=== PATIENT | male | born 2000 | race Caucasian/White ===

== ENCOUNTER 2025-01-16 03:35 | Emergency (ER) | payer OTHER, SELFPAY ==
--- OUTSIDE RECORDS SUMMARY | 2024-12-14 11:00 | XMS_ITS | Encounter Summary ---
[facility] Address [address] [place] [address] Care Team Providers Care Cp Bleacher Operator Name Role Phone Alda Law PA-C Primary Care Provider [phone]- [phone] Reason for Visit * Reason Onset Date Comments No Show 12/14/2024 Encounter Details Date Type Department Care Team (Latest Contact Info) Description 12/14/2024 11:00 AM CDT Telemedicine [facility] [address] [place], [place] [id number] Arline Hills MD [address] [facility] [place] [address] Encounters for administrative purposes (Primary Dx) Social History Tobacco Use Types Packs/Day Years Used Date Smoking Tobacco: Never Passive Smoke Exposure: Yes Smokeless Tobacco: Never Comments:Laquita trued cigarette s, i dont like or have interest in them. Alcohol Use Standard Drinks/Week Comments Yes 3 (1 standard drink = 0.6 oz pur e alcohol) social rarely PHQ-2 Answer Date Recorded PHQ-2 Score 6 11/13/2024 Financial Resource Strain Answer Date R ecorded Is it hard for you to pay fo r the very basics like food, housing, medical care or heating? Yes 11/19/2022 Food Insecurity Answer Date Recorded Does your food run out before you have the money to buy more? No 11/19/2022 Transportation Needs Answer Date Record ed Does a lack of transportatio n keep you from your medical appointments or from getting your medications? No 023 Sex and Gender Information Value Date Recorded Sex Assigned at Not on file Legal Sex Male 5:32 AM CDT Gender Identity Not on file Sexual Orientation Not on file documented as of this encounter Progress Notes * Arline Hills MD - 12/14/2024 11:00 AM CDT Patient was called/texted 2 times and was unable to be reached to complete their video/phone visit.Stayed on the visit for 15 minutes with no connection by patient. Arline Hills MD Family Medicine - [facility] documented in this encounter Plan of Treatment Not on file documented as of this encounter Visit Diagnoses Diagnosis Encounters for administrative purposes- Primary Encounters for unspecified administrative purpose documented in this encounter Care Teams Cp Bleacher Operator Relationship Specialty Start Date End Date Alda Law PA-C [address] [address] PCP - General Physician Boiler Tester 06/13/17 documented as of this encounter
[2025-01-16 03:42] VITALS: BP 127/86; PULSE 111; RESP 14; TEMP 37.4; O2SAT 96; BMI 37.0
--- NOTE | 2025-01-16 04:23 | ED.GENADULT ---
HPI - General Adult General Chief complaint: Headache/Migraine Stated complaint: Headache Time Seen by Provider: 01/16/25 04:00 Source: patient Mode of arrival: ambulatory Limitations: no limitations History of Present Illness HPI narrative: 24-year-old male presents to the emergency department with a postcoital headache that happened about 30 minutes prior to presentation. Headache happened at the climax of orgasm swelling gauging in sexual activity with his partner. No stimulants or other recreational drugs on board besides the marijuana that he typically smokes on a regular basis. No alcohol. He does not take any anticoagulants. The headache came on suddenly with orgasm and lasted 2-3 minutes, dissipating quickly. Had a low grade very dull ache for a few more minutes after and now the headache has resolved. He had a slight sensation of vertigo associated with the headache but that has passed as well. No prior history of similar symptoms. No prior history of brain aneurysm, no history of connective tissue disease. No hypertension. He felt like his heart was pounding with the episode and possibly a little bit irregular but that of course has also quickly resolved. No prior evaluation for similar complaints, no prior episodes. No recent head injury. Body feels back to normal at this point. No prior brain imaging. Past medical history benign per his report. History of depression and anxiety. Medications are reviewed. No allergies. Regularly smokes marijuana. ROS is notable for the neurological changes and headache patient describes, all quickly resolved in less than 5 minutes. Related Data Home Medications ?Medication ?Instructions ?Recorded ?Confirmed buspirone 15 mg tablet 15 mg PO DAILY 01/16/25 01/16/25 citalopram 20 mg tablet (Celexa) 20 mg PO DAILY 01/16/25 01/16/25 lamotrigine 150 mg tablet 150 mg PO DAILY 01/16/25 01/16/25 (Lamictal) Allergies Allergy/AdvReac Type Severity Reaction Status Date / Time No Known Drug Allergies Allergy Verified 01/16/25 03:42 Exam Const: Vital Signs, click to edit/add: Vital Signs - 24 hr 01/16/25 03:42 Temperature 99.3 F Pulse Rate [Right Pulse Oximeter] 111 H Respiratory Rate 14 Blood Pressure [Ri ght Upper Arm] 127/86 Pulse Oximetry 96 Oxygen Delivery Me thod Room Air Documenting provider has reviewed patient's vital signs: yes Common normals: alert Other: Anxious but cooperative, good historian. Casually dressed. HENMT: Common normals: normocephalic, TM's normal bilaterally, moist oral mucous membranes and oropharynx normal Head and scalp: normocephalic Face and sinus: normal facial exam Tympanic membrane: TM's normal bilaterally Mouth: oral and palatal mucosa normal Throat: posterior oropharynx normal Eye: Common normals: PERRL, EOMs intact bilaterally and no papilledema Pupil: PERRL Direct Ophthalmoscopy: no papilledema Neck & C-Spine: Common normals: full ROM and no lymphadenopathy Resp: Common normals: normal respiratory effort, no use of accessory muscles and clear to auscultation bilaterally Effort & inspection: able to speak in complete sentences Auscultation: clear to auscultation bilaterally Cardio: Common normals: regular rate, regular rhythm, S1 normal heart sound, S2 normal heart sound and no murmurs Rate: regular rate Rhythm: regular rhythm Heart sounds: S1 normal and S2 normal GI: Common normals: Normal to inspection, nondistended, normoactive bowel sounds present, soft to palpation, non-tender, no hepatosplenomegaly and no masses Palpation: soft and no hepatosplenomegaly Extremity: Common normals: normal to inspection and normal capillary refill Neuro: Irwin Coma Scale: document GCS findings Jennifer coma scale eye opening: Spontaneous (4) Irwin coma scale verbal response: Orientated (5) Irwin coma scale motor response: Obey commands (6) Jennifer coma scale total score: 15 Common normals: CN's II-XII intact bilaterally, moves all extremities and no focal motor deficits Sensorium/orientation: alert Cranial nerves: CN normal except as noted and vestibular testing Vestibular testing: Yes no nystagmus Coordination/balance: tandem gait normal and does not sway with eyes open Speech: speech normal Gait (neuro): normal gait Motor exam: strength 5/5 throughout, no pronator drift and no tremor noted Coordination: Romberg test normal, tandem gait normal and does not sway with eyes open Psych: Other: Mildly anxious but thought process logical, inside judgment do seem appropriate. Attention, memory and thought content normal. Skin: Common normals: no rashes or lesions noted General skin exam: no rashes or lesions noted Course Course ED Course: 24-year-old male with very brief post coital headache associated with orgasm only. Not associated with any focal neurological changes. I did look up additional guidelines regarding this since his episode was so brief. At this time it does not appear as though he meets criteria for CT scan or other imaging. We discussed signs and symptoms of brain aneurysm. He does not have additional risk factors such as trauma, connective tissue disease, anticoagulant use. The fact that his symptoms have dissipated completely and lasted less than 5 minutes are fairly reassuring. The risk of radiation is weighed against these factors. At this time I would recommend watchful waiting. Rationale was discussed. We extensively reviewed neurological changes, persistent headache signs or other indications that would have me concerned right away. If he has progression of the symptoms, longer acting headaches or more frequent episodes, I would recommend that we reconsider the risk of radiation CT against these symptoms. Okay to use Tylenol for mild discomfort. Focus on staying hydrated. No need to abstain from sexual activity. Counseled that if workup is found to be benign and he is bothered by frequent episodes, there are preventative treatments available to but I do not think this is warranted at this time. Vital Signs Vital signs: Initial Vital Signs Temperature 99.3 F 01/16/25 03:42 Temperature Source Temporal Artery Scan 01/16/25 03:42 Pulse Rate 111 H 01/16/25 03:42 Respiratory Rate 14 01/16/25 03:42 Blood Pressure 127/86 01/16/25 03:42 Blood Pressure Mean 99 01/16/25 03:42 Blood Pressure Position Sitting 01/16/25 03:42 Pulse Oximetry 96 01/16/25 03:42 Oxygen Delivery Method Room Air 01/16/25 03:42 Vital Signs Temperature 99.3 F 01/16/25 03:42 Pulse Rate 111 H 01/16/25 03:42 Respiratory Rate 14 01/16/25 03:42 Blood Pressure 127/86 01/16/25 03:42 Pulse Oximetry 96 01/16/25 03:42 Oxygen Delivery Method Room Air 01/16/25 03:42 Temperature 99.3 F 01/16/25 03:42 Pulse Rate 111 H 01/16/25 03:42 Respiratory Rate 14 01/16/25 03:42 Blood Pressure 127/86 01/16/25 03:42 Pulse Oximetry 96 01/16/25 03:42 Oxygen Delivery Method Room Air 01/16/25 03:42 Discharge Plan Discharge Clinical Impression: Headache associated with sexual activity Patient Disposition: Home w/ Parent or Adult Condition: Improved Instructions: General Headache (ED) Additional Instructions: As we discussed, your story is consistent with a post coital headache, rebranded to headache associated with sexual activity. We classify these into different groups based on severity and frequency. We do sometimes do additional workup like a CT or MRI if your symptoms are persistent, associated with neurological changes or are more long-lasting than what you encountered today. Based on your story, I do not recommend that we do a CT scan, as the risk of radiation does seem to outweigh the benefit. If you have frequent episodes, we should reconsider this and especially if you have any neurological changes like vision changes, continuous dizziness, focal weakness in your body or other unexpected findings. If the headache dissipates within just a few minutes like it did tonight, I am less concerned as well. If you have more severe symptoms or very frequent symptoms, I would recommend re-evaluation. At that time the risk of radiation to learn if there is something more complicated in the brain may be warranted. In the meantime, I do recommend that you stay hydrated, it is okay for you to use Tylenol or ibuprofen for mild headaches. You do not need to abstain from sexual activity. There are treatments available to help prevent symptoms if this happens frequently, they do have side effects and therefore I do not think that they are warranted based on a single episode that dissipated within just a few minutes and was not associated with other neurological findings like your episode today. You may resume all typical activities. Activity Level: No Restrictions Discharge Diet: Regular Prescriptions: No Action citalopram [Celexa] 20 mg tablet 20 mg PO DAILY buspirone 15 mg tablet 15 mg PO DAILY lamotrigine [Lamictal] 150 mg tablet 150 mg PO DAILY Stand Alone Forms: [employer] Info Instructions
--- OUTSIDE RECORDS SUMMARY | 2025-01-16 04:31 | XMS_ITS | Clinical Summary ---
[facility] Address [address] [place] [address] Care Team Providers Care Carnallite Plant Operator Name Role Phone Alda Law PA-C Primary Care Provider [phone]- [phone] Source Comments You are receiving this document as you are listed as the primary care provider,follow-up provider, or the patient has been referred to you for consultation.This is in compliance with the Medicare and[facility] Hospital[facility] EHR Incentive Program,which states Providers who transition their patient to another setting of careor provider of care or refers their patient to another provider of care shouldprovide summary care record for each transition of care or referral. Pick1 Allergies No known active allergies Medications * This document contains information received from the source organization and may not represent a complete record from that organization. busPIRone (BUSPAR) 10 MG tablet Take 1 Tablet (10 mg) by mouth two times a day. 4 Active citalopram (CELEXA) 20 MG tabletIndicatio ns:Moderate episode of recurrent major depressive disorder (HRC),MAGALIS (generalized anxiety disorder) (HRC) Take 1 Tablet (20 mg) by mouth daily. Take 1/2 tablet for the first week, then increased to 1 tablet daily 90 Tablet 5 Active busPIRone (BUSPAR) 15 MG tabletIndicatio ns:MAGALIS (generalized anxiety disorder) (HRC) Take 1 Tablet (15 mg) by mouth two times a day. 180 Tablet 3 5 11/14/19 26 Active lamoTRIgine (LAMICTAL) 150 MG tabletIndicatio ns:Moderate episode of recurrent major depressive disorder (HRC),MAGALIS (generalized anxiety disorder) (HRC) Take 1 Tablet (150 mg) by mouth every morning. 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 Hx of cannabis abuse 09/13/2017 Obesity 04/05/2014 ADHD (attention deficit hyperactivity disorder) 02/01/2012 Resolved Problems Problem Noted Date Diagnosed Date Resolved Date Adjustment disorder with mix ed disturbance of emotions and conduct 09/13/2017 11/19/2022 Academic underachievement 09/13/2017 Behavior concern 09/13/2017 11/19/2022 Onychia and paronychia of toe 09/18/2014 11/19/2022 Encounters Date Type Department Care Team Description 12/14/2024 11:00 AM CDT Telemedicine [facility] [address] [place] [address] Arline Hills MD Encounters for administrative purposes (Primary Dx) 11/18/[address] [place] [address] Arline Hills MD Refill (lamoTRIgine (LAMICTAL) 25 MG tablet [Pharmacy Med Name: LAMOTRIGINE 25 MG TABLET]) 11/13/2024 9:00 AM CDT Telemedicine [facility] [address] [address] [place] [address] Arline Hills MD Moderate episode of recurrent major depressive disorder (HRC) (Primary Dx); MAGALIS (generalized anxiety disorder) (HRC) 11/13/2024 Nurse Triage [facility] [address] [facility] [facility] [place] [address] Arline Hills MD ERRONEOUS ENTRY from Last 3 Months Immunizations Immunization Administration Dates Next Due 4vHPV (Gardasil) 09/06/2014,04/05/2014 9vHPV (Gardasil 9) 03/17/2016 DTaP 04/26/2007, 4,2001,2001 HepB Ped/Adol (0-18 yrs) 04/05/2014 Hib/HBV 06/04/2002,2001 IPV (Polio) 03/17/2004,2001 Influenza IIV4 (Quadrivalent ) 0.5mL (18998) 06/17/2017,09/06/2014 MCV4 (Menactra) 04/05/2014 MCV4 Menveo 2m.+ (two vial) 06/17/2017, 4 MMR 04/26/2007,03/17/2004 Moderna Bivalent 12+ 11/19/2022 Pfizer Monovalent 12+ 01/22/2022 Pfizer Monovalent 12+ Purple Top 06/13/2021,04/30 Polio, Unspecified Formulation 04/26/2007,2003,2001 Tdap 04/05/2014 Varicella 04/26/2007,06/04/2002 Social History Tobacco Use Types Packs/Day Years Used Date Smoking Tobacco: Never Passive Smoke Exposure: Yes Smokeless Tobacco: Never Tobacco Cessation:Counseling Given: Not Answered Comments:Laquita trued cigarettes, i dont like or have interest in [...] on file Sexual Orientation Not on file Last Filed Vital Signs Vital Sign Reading Time Taken Comments Blood Pressure 121/74 11/19/2022 4:23 PM CDT Pulse 81 09/28/2023 10:31 AM GROUND LAYER Temperature 37 C (98.6 F) 09/06/2017 11:35 PM GROUND LAYER Respiratory Rate 17 09/06/2017 11:3 5 PM GROUND LAYER Oxygen Saturation 97% 09/06/2017 11: 35 PM GROUND LAYER Inhaled Oxygen Concentration - - Weight 124.7 kg (275 lb) 11/13/2024 8:2 8 AM CDT patient reported Height 182.9 cm (6') 11/19/2022 4:20 PM CDT Body Mass Index 37.3 11/19/2022 4:20 PM CDT Plan of Treatment Health Maintenance Due Date Last Done Comments MenB Immunization Discussion 2001 DTaP/Tdap/Td Vaccine (6 - Tdap) 04/05/2024 04/05/2014, 04/26/2007, 03/17/2004, Additional history exists COVID-19 Vaccine ( season) 2024 11/19/2022, 01/22/2022, 06/13/2021, Additional history exists Influenza Vaccine (Season Ended) 2025 06/17/2017, 09/06/2014 Adult Preventive Visit 09/13/2025 , 11/19/2022, 04/05/2014 Zoster/Shingles Vaccine (1 of 2) 2051 Hib Vaccine Aged Out 06/04/2002, 2001 No lo nger eligible based on patient's age to complete this topic Varicella Vaccine Completed 04/26/2007, 06/04/2002 HepB Vaccine Completed 04/05/2014, 02/2002, 2001 HPV Vaccine Completed 03/17/2016, 04/2015, 04/05/2014 MCV4 Vaccine Completed 06/17/2017, 03/2014, 04/05/2014 HIV Screening (Preventive Services) Completed 11/19/2022 Hep C Screening (Preventive Services) Completed 11/19/2022 HepA Vaccine Aged Out No longer eligi ble based on patient's age to complete this topic Pneumococcal Vaccine Aged Out No long er eligible based on patient's age to complete this topic Procedures Procedure Name Priority Date/Time Associated Diagnosis Comments HIV 1/2 AG/AB 4TH GEN Routine 11/19/2022 5:04 PM CDT Screening for HIV (human immunodeficiency virus) HEPATITIS C ANTIBODY, WITH REFLEX Routine 11/19/2022 5:04 PM CDT Need for hepatitis C screening test from Last 3 Months or Most Recently Relevant to Health Maintenance Results * HIV 1/2 Ag/Ab 4th Generation (11/19/2022 5:04 PM CDT) HIV 1/2 Antigen/Antib karan (4th generation) Negative (Non Reactive) Negative (Non Reactive) 11/19/2022 11:12 PM CDT [facility] Comment:HIV-1 p24 Antigen an d HIV-1/HIV-2 Antibody not detected Blood Venipuncture / Unknown 11/19/2022 5:04 PM CDT 11/19/2022 5:04 PM CDT Power Han MD LAB_1 Final Result Performing Organization Address [facility] de Phone Number [facility] [address] [place] [address] * Hepatitis C Antibody, with Reflex (11/19/2022 5:04 PM CDT) Hepatitis C Antibody Negative (Non Reactive) Negative (Non Reactive) 11/19/2022 11:12 PM CDT [facility] Comment:Antibodies to HCV no t detected. Does not exclude the possiblity of exposure to HCV. Blood Venipuncture / Unknown 11/19/2022 5:04 PM CDT 11/19/2022 5:04 PM CDT Power Han MD LAB_1 Final Result Performing Organization Address City/[facility]/ZIP Co de Phone Number [facility] [address] [place] [address] from Last 3 Months or Most Recently Relevant to Health Maintenance Insurance [employer] COMM HP FAMILY DENTAL HP SELF MANAGED CARE [id number] [place] [facility] [place] [address] Care Teams Carnallite Plant Operator Relationship Specialty Start Date End Date Alda Law PA-C [address] [place] [id number] PCP - General Physician Job Specification Writer 06/13/17
--- OUTSIDE RECORDS SUMMARY | 2025-01-16 04:31 | XMS_ITS | Encounter Summary ---
Author Organization [facility] Address [address] [place] [address] Care Team Providers Care Mill Control Operator Name Role Phone Alda Law PA-C Primary Care Provider [phone]- [phone] Reason for Visit * Reason Comments Refill lamoTRIgine (LAMICTA L) 25 MG tablet [Pharmacy Med Name: LAMOTRIGINE 25 MG TABLET] Encounter Details Date Type Department Care Team (Late st Contact Info) Description 11/18/2024 Refill [facility] [address] [place] [address] Gurinder Vines MD [address] [place] [phone] Refill (lamoTRIgine (LAMICTAL) 25 MG tablet [Pharmacy Med Name: LAMOTRIGINE 25 MG TABLET]) Social History Tobacco Use Types Packs/Day Years [...] on file documented as of this encounter Nursing Notes * Dusty Martinez [facility] - 11/18/2024 12:23 AM CDT lamoTRIgine (LAMICTAL) 25 MG tablet [Pharmacy Med Name: LAMOTRIGINE 25 MG TABLET] Medication started: 05/11/2023 Last ordered by GURINDER VINES: 09/13/2024 (66 days ago) QTY: 182, Refills: 0, Sig: take 1 tablet (25 mg) by mouth daily for 14 days, then 2 tablets (50 mg) daily for 14 days, then 4 tablets (100 mg) daily for 14 days, then 6 tablets (150 mg) daily for 14 days. (unchanged) -> The requested medication (oral tablet 25 mg) appears on the patient's medication list as oral tablet 150 mg. -> This medication was discontinued on 11/13/2024 by GURINDER VINES. -> Medication cannot be delegated. Last qualifying visit: 11/13/2024 (with GURINDER VINES) Next scheduled visit: 12/14/2024 (with GURINDER VINES) [employer] Embedded Refills, Reference: [id number], 11/18/2024 12:23:54 AM CDT, Pool: STEPHANIE Refill Centralized Services - Primary Care [[id number]] ([id number]) documented in this encounter Plan of Treatment Not on file documented as of this encounter Visit Diagnoses Not on filedocumented in this encounter Care Teams Mill Control Operator Relationship Specialty Start Date End Date Alda Law PA-C [address] [address] [address] PCP - General Physician Manager Of Planning 06/13/17 documented as of this encounter
== END 2025-01-16 04:31 | disposition home or self-care (01) ==
LOC: ED 04:29
PROVIDERS: Emergency Provider Family Medicine
DX: G44.82 Headache associated with sexual activity (principal); R42 Dizziness and giddiness; F12.90 Cannabis use, unspecified, uncomplicated
CPT/HCPCS: 99282; 99283